=== PATIENT | male | born 1970 | race Two or more races ===

== ENCOUNTER 2024-04-18 21:45 | Inpatient (IN) | payer MEDICAID, OTHER ==
[~2024-04-18] VITALS: Ht 182.9 cm; Wt 104.7 kg
[2024-04-18 22:21] LABS: Basophils # (auto) 0.1 10 ^3/uL (0-0.2); Eosinophils # (auto) 0.2 10 ^3/uL (0-0.8); Eosinophils % (auto) 3.3 % (0.0-7.0); Hematocrit 34.4 % (41.0-53.0); Hemoglobin 11.9 g/dL (13.5-17.5); Lymphocytes # (auto) 2.1 10 ^3/uL (0.4-5.4); Lymphocytes % (auto) 28.7 % (10.0-50.0); Mean Corpuscular Hemoglobin 30.5 pg (28.0-32.0); Mean Corpuscular Hgb Conc. 34.6 g/dL (32.0-36.0); Mean Corpuscular Volume 88.1 fL (80.0-100.0); Monocytes # (auto) 0.7 10 ^3/uL (0-1.3); Monocytes % (auto) 9.3 % (0.0-12.0); Neutrophils # (auto) 4.2 10 ^3/uL (1.6-8.6); Neutrophils % (auto) 57.7 % (37.0-80.0); Red Cell Distribution Width 13.5 % (11.8-14.3); White Blood Cell 7.3 10^3/uL (4.4-10.8)
[2024-04-18 22:32] LABS: Chloride 105 mmol/L (98-107); Potassium 3.9 mmol/L (3.5-5.1); Sodium 138 mmol/L (136-145)
[2024-04-18 22:33] LABS: Anion Gap 6 (5-15); Calcium 9.6 mg/dL (8.7-10.4); Carbon Dioxide 27 mmol/L (20-30)
[2024-04-18 22:38] LABS: BUN/Creatinine Ratio 15.1 (10.0-20.0); Blood Urea Nitrogen 14 mg/dL (9-23); Glucose 182 mg/dL (74-106)
[2024-04-18 22:47] LABS: Urine Bacteria None Seen /hpf (None Seen)
[2024-04-18 22:55] LABS: Urine Blood Negative /uL (Negative); Urine Clarity Clear (Clear); Urine Color Light-Yellow (Yellow); Urine Protein, UAD Negative (Negative); Urine Specific Gravity 1.022 (1.001-1.035); Urine Urobilinogen Normal (Negative); Urine WBC <1 /hpf (0 - 3)
[2024-04-18] MEDS ORDERED: ONDANSETRON HCL 4 MG/2 ML VIAL IV PRN (23:45)
[2024-04-18] MEDS ORDERED: hydrALAZINE HCL 20 MG/ML VL IV PRN (23:45)
[2024-04-18] MEDS ORDERED: DEXTROSE (50%) 50ML SYRG IV PRN (23:45)
[2024-04-18] MEDS ORDERED: MECLIZINE HCL 25 MG TAB PO PRN (23:45)
[2024-04-18] MEDS ORDERED: DOCUSATE SOD 100 MG CAP PO PRN (23:45)
[2024-04-18] MEDS ORDERED: ACETAMINOPHEN 325 MG TAB PO PRN (23:45)
[2024-04-19] VITALS (10 sets, daily range): BP systolic 118–142; BP diastolic 76–89; PULSE 68–89; RESP 15–24; TEMP 97.6–98.2; O2SAT 97–99
[2024-04-19] MEDS ORDERED: NITROGLYCERIN 0.4 MG SL TAB SL PRN
[2024-04-19] MEDS ORDERED: MORPHINE SULFATE INJ 2 MG/ml SYRG IV PRN
[2024-04-19] MEDS: HYDROcodone-ACET 5/325MG TAB PO PRN (01:36)
[2024-04-19] MEDS ORDERED: SENN-195 PO (05:00)
[2024-04-19] MEDS ORDERED: ASPI-325 PO (05:00)
[2024-04-19] MEDS ORDERED: GLIP10TA9 PO ×2 (05:00→14:48)
[2024-04-19] MEDS ORDERED: METO1TAB9 PO (05:00)
[2024-04-19] MEDS ORDERED: ATOR20TA50 PO ×2 (05:00→14:48)
[2024-04-19] MEDS ORDERED: HYDR1TAB97 PO (05:00)
[2024-04-19] MEDS ORDERED: CYCL-611 PO (05:00)
[2024-04-19] MEDS ORDERED: GABA-1250 PO (05:00)
[2024-04-19] MEDS ORDERED: LISI-283 PO (05:26)
[2024-04-19] MEDS ORDERED: FEXO-42 PO ×2 (05:26→14:48)
[2024-04-19] MEDS: ACCU-CHEK COMFORT CURVE STRIP VI SCH (06:22)
[2024-04-19] MEDS: SODIUM CHLOR 0.9% PF (SALINE LOCK) 10ML VIAL/SYR IV SCH (06:22)
[2024-04-19] MEDS: InsuLIN REG 1unit/0.01ml Soln (100units/ml) SC SCH (06:22)
[2024-04-19 07:45] LABS: Basophils # (auto) 0.1 10 ^3/uL (0-0.2); Basophils % (auto) 0.9 % (0.0-2.0); Eosinophils # (auto) 0.3 10 ^3/uL (0-0.8); Eosinophils % (auto) 3.8 % (0.0-7.0); Hematocrit 36.3 % (41.0-53.0); Hemoglobin 12.7 g/dL (13.5-17.5); Lymphocytes # (auto) 1.5 10 ^3/uL (0.4-5.4); Lymphocytes % (auto) 21.3 % (10.0-50.0); Mean Corpuscular Hemoglobin 31.1 pg (28.0-32.0); Mean Corpuscular Volume 88.9 fL (80.0-100.0); Monocytes # (auto) 0.7 10 ^3/uL (0-1.3); Monocytes % (auto) 9.1 % (0.0-12.0); Neutrophils # (auto) 4.7 10 ^3/uL (1.6-8.6); Neutrophils % (auto) 64.9 % (37.0-80.0); Nucleated Red Blood Cells % 0.1 %; Red Blood Cells 4.08 10^6/uL (4.5-5.90); Red Cell Distribution Width 13.7 % (11.8-14.3); White Blood Cell 7.3 10^3/uL (4.4-10.8)
[2024-04-19 07:50] LABS: Alanine Aminotransferase 24 U/L (7-40); Albumin 3.9 g/dL (3.2-4.8); Alkaline Phosphatase 108 U/L (46-116); Anion Gap 5 (5-15); Aspartate Aminotransferase 15 U/L (13-40); BUN/Creatinine Ratio 12.8 (10.0-20.0); Blood Urea Nitrogen 11 mg/dL (9-23); Calcium 9.4 mg/dL (8.7-10.4); Carbon Dioxide 25 mmol/L (20-30); Chloride 109 mmol/L (98-107); Glucose 169 mg/dL (74-106); Potassium 4.1 mmol/L (3.5-5.1); Sodium 139 mmol/L (136-145)
[2024-04-19 07:51] LABS: Bilirubin, Total 0.2 mg/dL (0.2-1.0)
[2024-04-19] MEDS ORDERED: METOPROLOL TARTRATE 25 MG TAB PO SCH (10:00)
[2024-04-19] MEDS ORDERED: CYCLOBENZAPRINE HCL 10 MG TAB PO PRN (10:15)
[2024-04-19] MEDS: ASPirin 81 mg TAB PO SCH (10:34)
[2024-04-19 10:59] LABS: Triglycerides 302 mg/dL (< 150)
[2024-04-19 11:00] LABS: LDL Cholesterol 71 mg/dL (< 100)
[2024-04-19 11:01] LABS: Cholesterol 138 mg/dL (< 200); HDL Cholesterol 34 mg/dL (40-59)
[2024-04-19 13:22] LABS: Amphetamine Screen, Urine Neg (NEGATIVE); Benzodiazephine Screen, Urine Neg (NEGATIVE)
[2024-04-19 13:23] LABS: Barbiturate Scree,Urine Neg (NEGATIVE)
[2024-04-19 13:25] LABS: Cannabinoid Screen, Urine Pos (NEGATIVE); Cocaine Screen, Urine Neg (NEGATIVE); Opiate Scree,Urine Pos (NEGATIVE); Phencyclidine Screen, Urine Neg (NEGATIVE)
[2024-04-19] MEDS ORDERED: METO-289 PO (14:48)
[2024-04-19] MEDS ORDERED: ALOG1TAB2 PO (14:48)
[2024-04-19] MEDS ORDERED: LIDO2SOL18 MT (14:48)
[2024-04-19] MEDS ORDERED: METF-370 PO (14:48)
[2024-04-19] MEDS ORDERED: ASPI-543 PO (14:48)
[2024-04-19] MEDS ORDERED: LISI-285 PO (14:48)
[2024-04-19 18:00] LABS: Basophils # (auto) 0.1 10 ^3/uL (0-0.2); Basophils % (auto) 0.8 % (0.0-2.0); Eosinophils # (auto) 0.3 10 ^3/uL (0-0.8); Eosinophils % (auto) 3.8 % (0.0-7.0); Hemoglobin 12.1 g/dL (13.5-17.5); Lymphocytes # (auto) 1.6 10 ^3/uL (0.4-5.4); Lymphocytes % (auto) 23.5 % (10.0-50.0); Mean Corpuscular Hemoglobin 30.6 pg (28.0-32.0); Mean Corpuscular Hgb Conc. 34.8 g/dL (32.0-36.0); Mean Corpuscular Volume 87.9 fL (80.0-100.0); Monocytes # (auto) 0.6 10 ^3/uL (0-1.3); Monocytes % (auto) 9.1 % (0.0-12.0); Neutrophils # (auto) 4.2 10 ^3/uL (1.6-8.6); Neutrophils % (auto) 62.8 % (37.0-80.0); Red Blood Cells 3.98 10^6/uL (4.5-5.90); Red Cell Distribution Width 13.7 % (11.8-14.3); White Blood Cell 6.8 10^3/uL (4.4-10.8)
[2024-04-19 18:13] LABS: Chloride 109 mmol/L (98-107); Sodium 137 mmol/L (136-145)
[2024-04-19 18:14] LABS: Anion Gap 2 (5-15); Carbon Dioxide 26 mmol/L (20-30)
[2024-04-19 18:15] LABS: Calcium 9.6 mg/dL (8.7-10.4)
[2024-04-19 18:19] LABS: Glucose 122 mg/dL (74-106)
[2024-04-19 18:20] LABS: BUN/Creatinine Ratio 12.7 (10.0-20.0); Blood Urea Nitrogen 9 mg/dL (9-23)
[2024-04-19] MEDS ORDERED: InsuLIN REG 1unit/0.01ml Soln (100units/ml) SC SCH (22:00)
[2024-04-19] MEDS ORDERED: ATORVASTATIN 20 MG TAB PO SCH ×2 (22:00)
[2024-04-19] MEDS: ATORVASTATIN 20 MG TAB PO SCH (22:04)
[2024-04-20 05:00] VITALS: BP_SYST 139; BP_SYST 140; BP_SYST 145; BP_DIAS 92; BP_DIAS 93; BP_DIAS 96; PULSE 76; PULSE 81; RESP 20; RESP 24; TEMP 98.3; O2SAT 32; O2SAT 97
[2024-04-20 08:00] VITALS: PULSE 76; O2SAT 97
[2024-04-20] MEDS: GABAPENTIN 300 MG CAP PO SCH (09:56)
[2024-04-20 09:57] VITALS: BP 132/76; PULSE 71; RESP 17; TEMP 98.4; O2SAT 98
[2024-04-20] MEDS ORDERED: MECL-90 PO (13:25)
[2024-04-20] MEDS ORDERED: GABA-1250 PO (13:25)
[2024-04-20] MEDS ORDERED: METO-6 PO (13:25)
[2024-04-20 14:51] VITALS: BP 139/92; PULSE 67; RESP 17; TEMP 98.7; O2SAT 99
[2024-04-20 17:33] VITALS: BP 148/86; PULSE 76; RESP 17; TEMP 98.1; O2SAT 96
== END 2024-04-20 19:45 | disposition home or self-care (01) | DRG 111 ==
LOC: ER 21:45 → TELE 23:56 → TELE-EAST 23:56
PROVIDERS: ADMIT Internal Medicine; ATTEND Internal Medicine
DX: H81.10 Benign paroxysmal vertigo, unspecified ear (principal); D64.9 Anemia, unspecified; E11.65 Type 2 diabetes mellitus with hyperglycemia; E78.5 Hyperlipidemia, unspecified; E66.9 Obesity, unspecified; I10 Essential (primary) hypertension; K59.00 Constipation, unspecified; F12.90 Cannabis use, unspecified, uncomplicated; Z68.32 Body mass index [BMI] 32.0-32.9, adult; M54.59 Other low back pain
CPT/HCPCS: 36415; 70450; 71046; 80048; 80053; 80061; 80307; 81001; 82962; 83036; 83540; 83550; 83880; 84443; 84484; 85025; 93005; 97163; G0378

== ENCOUNTER 2024-07-09 02:18 | Emergency (ER) | payer MEDICAID ==
[~2024-07-09] VITALS: Ht 182.9 cm; Wt 100.0 kg
[~2024-07-09 02:18] MED LIST: ALOG1TAB2 PO; ASPI-543 PO; ATOR20TA50 PO; GABA-1250 PO; GLIP10TA9 PO; LIDO2SOL18 MT; MECL-90 PO; METF-370 PO; METO-6 PO
[2024-07-09 02:20] VITALS: TEMP 98.7
[2024-07-09 02:23] VITALS: BP 123/87; RESP 18; O2SAT 97
[2024-07-09] MEDS ORDERED: CYCL-837 PO (03:00)
[2024-07-09] MEDS: GABAPENTIN 300 MG CAP PO ONE (03:00)
[2024-07-09] MEDS ORDERED: IBUP-1456 PO (03:00)
[2024-07-09] MEDS: KETOROLAC TROMETH 60MG/2ML VIAL IM ONE (03:07)
[2024-07-09 03:24] VITALS: PULSE 75
== END 2024-07-09 03:18 | disposition home or self-care (01) ==
LOC: EDBD 02:18 → ER 02:18
DX: M54.41 Lumbago with sciatica, right side (principal); G89.29 Other chronic pain; Z79.82 Long term (current) use of aspirin; Z79.899 Other long term (current) drug therapy
CPT/HCPCS: 93005; 96372; 99283; J1885

== ENCOUNTER 2024-07-14 01:06 | Emergency (ER) | payer MEDICAID ==
[~2024-07-14] VITALS: Ht 182.9 cm; Wt 104.0 kg
[~2024-07-14 01:06] MED LIST changes: +CYCL-837 PO; +IBUP-1456 PO
[2024-07-14 01:15] VITALS: BP 160/93; PULSE 102; RESP 20; TEMP 98.3; O2SAT 97
[2024-07-14] MEDS ORDERED: AUG875T PO (02:11)
[2024-07-14] MEDS ORDERED: BACLOFEN 10 MG TAB PO ONE (02:15)
== END 2024-07-14 02:52 | disposition home or self-care (01) ==
LOC: EDBD 01:06 → ER 01:06 → EDUNIT# 01:47 → ER 02:52
DX: S91.351A Open bite, right foot, initial encounter (principal); Z79.899 Other long term (current) drug therapy; Z79.84 Long term (current) use of oral hypoglycemic drugs; W54.0XXA Bitten by dog, initial encounter; Y93.89 Activity, other specified; Y92.89 Other specified places as the place of occurrence of the external cause; Y99.8 Other external cause status

== ENCOUNTER 2024-07-31 20:43 | Emergency (ER) | payer MEDICAID ==
[~2024-07-31] VITALS: Ht 182.9 cm; Wt 91.0 kg
[~2024-07-31 20:43] MED LIST changes: +AUG875T PO
[2024-07-31] MEDS: LORazepam 2MG/ML-1ML VIAL IM ONE (21:11)
[2024-07-31] MEDS: diphenhdrAMINE HCL 50 MG/1 ML VL IM ONE (21:11)
[2024-07-31] MEDS: HALOPERIDOL LACTATE 5 MG/ML INJ VIAL IM ONE (21:12)
--- NOTE | 2024-07-31 21:13 | ED.PDOC ---
History of Present Illness HPI Comments 53 y/o M is BIBA for mental health issues, today. Per EMS, patient, initially, called for concerns on having a "heart attack/stroke." Patient is stated to not be endorsing any symptoms of chest pain, shortness of breath, weakness, vision or speech changes, or other associated symptoms. On scene, patient was found by EMS staff oriented to name and place but digressed into rambling and racing thoughts upon further inquiries. At time of assessment, patient has racing thoughts and noncooperative. Chief Complaint: Mental Health Time Seen by MD: 20:45 Primary Care Provider: ELOINA Reviewed Notes: Nurses Notes, Insurance Compliance Analyst Notes, Medications, Allergies Allergies: Coded Allergies: NO KNOWN ALLERGIES (Unverified , 04/18/24) Home Meds Active Scripts Amoxicillin & Pot Clavulanate (AUGMENTIN TABLET) 875 Mg Tb, 1 TAB PO BID for 5 Days, #10 TAB Prov:ESMER PETERSEN 07/14/24 Cyclobenzaprine Hcl (Cyclobenzaprine Hcl) 5 Mg Tab, 1 TAB PO QHSP, #14 TAB 0 Refills Prov:VIVIANE SANTOS 07/09/24 Ibuprofen (Ibuprofen) 800 Mg Tab, 1 TAB PO TID PRN, #30 TAB 0 Refills Prov:VIVIANE SANTOS 07/09/24 Meclizine Hcl (Meclizine Hcl) 25 Mg Tab, 25 MG PO Q8HPRN PRN for 10 Days, #30 TAB Prov:FRITZ MEJIA MD 04/20/24 Gabapentin (Gabapentin) 300 Mg Cap, 300 MG PO DAILY for 30 Days, #30 CAP Prov:FRITZ MEJIA MD 04/20/24 Metoprolol Succinate (Toprol Xl) 50 Mg Tab, 1 TAB PO DAILY for 30 Days, #30 TAB 5 Refills Prov:FRITZ MEJIA MD 04/20/24 Reported Medications Lidocaine Hcl (Lidocaine Viscous) 2 % Renetta, 15 ML MT 04/19/24 Alogliptin Benzoate (Alogliptin) 25 Mg Tab, 25 MG PO, TAB 04/19/24 Aspirin (Aspir-Low) 81 Mg Tab, 81 MG PO DAILY for 30 Days, MG 04/19/24 Metformin Hydrochloride (Metformin Hcl) 500 Mg Tab, 1000 MG PO IBID for 30 Days, MG 04/19/24 Atorvastatin Calcium (ATORVASTATIN CALCIUM) 20 Mg Tab, 1 TAB PO DAILY, #30 TAB 5 Refills 04/19/24 Glipizide (Glipizide) 10 Mg Tab, 10 MG PO for 30 Days, MG 04/19/24 Information Source: Patient, Emergency Med Personnel Mode of Arrival: EMS Severity: Moderate Timing: Hours Duration: Since onset Prehospital treatment: None Past Medical History PAST MEDICAL HISTORY: Denies Surgical History: Denies all surgeries Family History Family History: Unknown Social History Smoker: Non-Smoker Alcohol: Denies ETOH Use Drugs: Marijuana Lives In: Homeless Constitutional: denies: chills, diaphoresis, fatigue, fever, malaise, sweats, weakness, others EENTM: denies: blurred vision, double vision, ear bleeding, ear discharge, ear drainage, ear pain, ear ringing, eye pain, eye redness, hearing loss, mouth pain, mouth swelling, nasal discharge, nose bleeding, nose congestion, nose pain, photophobia, tearing, throat pain, throat swelling, voice changes, others Respiratory: denies: cough, hemoptysis, orthopnea, SOB at rest, shortness of breath, SOB with excertion, stridor, wheezing, others Cardiovascular: denies: chest pain, dizzy spells, diaphoresis, Dyspnea on exertion, edema, irregular heart beat, left arm pain, lightheadedness, palpita tions, PND, syncope, others Gastrointestinal: denies: abdomen distended, abdominal pain, blood streaked gabriella wels, constipated, diarrhea, dysphagia, difficulty swallowing, hematemesis, melena, nausea, poor appetite, poor fluid intake, rectal bleeding, rectal pain, vomiting, others Genitourinary: denies: burning, dysuria, flank pain, frequency, hematuria, incontinence, penile discharge, penile sore, pain, testicle pain, testicle swelling, urgency, others Neurological: denies: dizziness, fainting, headache, left sided numbness, left sided weakness, numbness, paresthesia, pre-existing deficit, right sided numbness, right sided weakness, seizure, speech problems, tingling, tremors, weakness, others Musculoskeletal: denies: back pain, gout, joint pain, joint swelling, muscle pain, muscle stiffness, neck pain, others Integumetry: denies: bruises, change in color, change in hair/nails, dryness, laceration, lesions, lumps, rash, wounds, others Allergic/Immunocompromised: denies: Difficulty Healing, Frequent Infections, Hives, Itching, others Hematologic/Lymphatic: denies: anemia, blood clots, easy bleeding, easy bruisin g, swollen glands, others Endocrine: denies: excessive hunger, excessive sweating, excessive thirst, excessive urination, flushing, intolerance to cold, intolerance to heat, unexplained weight gain, unexplained weight loss, others Psychiatric: denies: anxiety, bipolar disorder, depression, hopeless, panic disorder, schizophrenia, sleepless, suicidal, others All Other Systems: Reviewed and Negative (see HPI) Physical Exam General Appearance: Moderate Distress, Other (The patient was uncooperative and had to be restrained by the paramedics) HEENT: Normal ENT Inspection, Pharynx Normal, TMs Normal Neck: Full Range of Motion, Non-Tender, Normal, Normal Inspection Respiratory: Chest Non-Tender, Lungs Clear, No Accessory Muscle Use, No Respiratory Distress, Normal Breath Sounds Cardiovascular: No Edema, No JVD, No Murmur, No Gallop, Normal Peripheral Pulses, Regular Rate/Rhythm Breast Exam: Deferred Gastrointestinal: No Organomegaly, Non Tender, No Pulsatile Mass, Normal Bowel Sounds, Soft Genitalia: Deferred Pelvic: Deferred Rectal: Deferred Extremities: No calf tenderness, Normal capillary refill, Normal inspection, Normal range of motion, Non-tender, No pedal edema Musculoskeletal : Apperance: Normal Neurologic: Alert, auto finance sales rep II-XII nml as Tested, No Sensory Deficits, Other (The p atient's seems to be responding to internal stimuli) Cerebellar Function: Normal Reflexes: Normal Skin: Dry, Normal Color, Warm Lymphatic: No Adenopathy Was a procedure done? Was a procedure done?: No Differential Dx Considerations may include: schizophrenia, substance abuse, substance intoxication X-Ray, Labs, Meds, VS Vital Signs Date Time Temp Pulse Resp B/P (MAP) Pulse Ox O2 Delivery O2 Flow Rate FiO2 07/31/24 20:43 98.0 72 22 140/74 (96) 98 Lab Test 07/31/24 22:03 Range/Units White Blood Count 7.0 4.4-10.8 10^3/uL Red Blood Count 4.33 L 4.5-5.90 10^6/uL Hemoglobin 12.8 L 13.5-17.5 g/dL Hematocrit 36.9 L 41.0-53.0 % Mean Corpuscular Volume 85.3 80.0-100.0 fL Mean Corpuscular Hemoglobin 29.6 28.0-32.0 pg Mean Corpuscular Hemoglobin Concent 34.7 32.0-36.0 g/dL Red Cell Distribution Width 12.8 11.8-14.3 % Platelet Count 277 140-450 10^3/uL Mean Platelet Volume 8.9 6.9-10.8 fL Neutrophils (%) (Auto) 68.5 37.0-80.0 % Lymphocytes (%) (Auto) 22.8 10.0-50.0 % Monocytes (%) (Auto) 7.4 0.0-12.0 % Eosinophils (%) (Auto) 0.7 0.0-7.0 % Basophils (%) (Auto) 0.6 0.0-2.0 % Neutrophils # (Auto) 4.8 1.6-8.6 10 ^3/uL Lymphocytes # (Auto) 1.6 0.4-5.4 10 ^3/uL Monocytes # (Auto) 0.5 0-1.3 10 ^3/uL Eosinophils # (Auto) 0.1 0-0.8 10 ^3/uL Basophils # (Auto) 0 0-0.2 10 ^3/uL Nucleated Red Blood Cells 0.2 % Sodium Level 140 136-145 mmol/L Potassium Level 3.0 L 3.5-5.1 mmol/L Chloride Level 106 98-107 mmol/L Carbon Dioxide Level 25 20-31 mmol/L Anion Gap 9 5-15 Blood Urea Nitrogen 21 9-23 mg/dL Creatinine 0.79 0.700-1.30 mg/dL Glomerular Filtration Rate Calc 106 >90 mL/min BUN/Creatinine Ratio 26.6 H 10.0-20.0 Serum Glucose 95 74-106 mg/dL Calcium Level 10.2 8.7-10.4 mg/dL Plasma/Serum Blood Alcohol < 3.0 <10 mg/dL Current Medications Medications (Trade) Dose Ordered Sig/Marlon Route Start Time Stop Time Status Last Admin Haloperidol Lactate (Haldol) 10 mg ONCE ONCE IM 07/31/24 21:00 07/31/24 21:01 DC 07/31/24 21:12 Diphenhydramine HCl (Benadryl Injection) 50 mg ONCE ONCE IM 07/31/24 21:00 07/31/24 21:01 DC 07/31/24 21:11 Lorazepam (Ativan Inj) 2 mg ONCE ONCE IM 07/31/24 21:00 07/31/24 21:01 DC 07/31/24 21:11 The patient was given Haldol 10 mg IM The patient was given Benadryl 50 mg IM The patient was given Ativan 2 mg IM The patient was finally gone to sleep The CBC and chemistry panel are within normal limits At this time, the patient is sleeping The patient will be observed through the night and signed out to the [facility] emergency department's physician Time of 1ST Reevaluation: 21:15 Reevaluation 1ST: Unchanged Patient Education/Counseling: Prognosis, Other (The patient was acting bizarre) Family Education/Counseling: No Family Present Departure 1 Departure Time of Disposition: 23:04 Impression: Primary Impression: Acute psychosis Disposition: 30 STILL A PATIENT Condition: Fair Critical Care Note Critical Care Time?: No Stability Stability form required: No Heart Score Heart Score: Heart Score Response (Comments) Value History N/A 0 EKG N/A 0 Age N/A 0 Risk Factors N/A 0 Troponin N/A 0 Total 0 I personally scribed for MARIA GUADALUPE COX MD ([email or web address]) on 07/31/24 at 21:13. Electronically submitted by Desmond Jordan ([email or web address]). MARIA GUADALUPE COX MD Jul 31, 2024 21:13
[2024-07-31 22:19] LABS: Basophils # (auto) 0 10 ^3/uL (0-0.2); Basophils % (auto) 0.6 % (0.0-2.0); Eosinophils # (auto) 0.1 10 ^3/uL (0-0.8); Eosinophils % (auto) 0.7 % (0.0-7.0); Hematocrit 36.9 % (41.0-53.0); Hemoglobin 12.8 g/dL (13.5-17.5); Lymphocytes # (auto) 1.6 10 ^3/uL (0.4-5.4); Lymphocytes % (auto) 22.8 % (10.0-50.0); Mean Corpuscular Hemoglobin 29.6 pg (28.0-32.0); Mean Corpuscular Hgb Conc. 34.7 g/dL (32.0-36.0); Mean Corpuscular Volume 85.3 fL (80.0-100.0); Monocytes # (auto) 0.5 10 ^3/uL (0-1.3); Monocytes % (auto) 7.4 % (0.0-12.0); Neutrophils # (auto) 4.8 10 ^3/uL (1.6-8.6); Neutrophils % (auto) 68.5 % (37.0-80.0); Nucleated Red Blood Cells % 0.2 %; Platelet Count (auto) 277 10^3/uL (140-450); Red Blood Cells 4.33 10^6/uL (4.5-5.90); Red Cell Distribution Width 12.8 % (11.8-14.3)
[2024-07-31 22:28] LABS: Chloride 106 mmol/L (98-107); Sodium 140 mmol/L (136-145)
[2024-07-31 22:29] LABS: Anion Gap 9 (5-15); Calcium 10.2 mg/dL (8.7-10.4); Carbon Dioxide 25 mmol/L (20-31)
[2024-07-31 22:34] LABS: BUN/Creatinine Ratio 26.6 (10.0-20.0); Blood Urea Nitrogen 21 mg/dL (9-23); Glucose 95 mg/dL (74-106)
[2024-07-31 22:35] LABS: Blood Alcohol < 3.0 mg/dL (<10)
[2024-07-31 23:38] VITALS: TEMP 98.6
[2024-07-31 23:45] VITALS: PULSE 68; RESP 20; O2SAT 96
[2024-08-01 06:00] VITALS: BP 174/141
[2024-08-01 07:30] VITALS: PULSE 67; RESP 16; O2SAT 100
[2024-08-01] MEDS: HALOPERIDOL LACTATE 5 MG/ML INJ VIAL IM ONE (09:30)
[2024-08-01] MEDS: LORazepam 2MG/ML-1ML VIAL IM ONE (09:30)
[2024-08-01 10:04] LABS: Urine Bacteria None Seen /hpf (None Seen)
[2024-08-01 10:31] LABS: Urine Blood Negative /uL (Negative); Urine Clarity Clear (Clear); Urine Color Yellow (Yellow); Urine Mucus FEW (None Seen); Urine Protein, UAD TRACE (Negative); Urine Urobilinogen Normal (Negative); Urine WBC 1 /hpf (0 - 3)
--- NOTE | 2024-08-01 14:04 | ED.PDOC ---
Departure 1 Departure Time of Disposition: 14:03 (Patient is signed out to me pending psychiatric consultation. Patient awoke very agitated and combative and received sedative medication and is now sleeping comfortably.) Impression: Primary Impression: Acute psychosis Disposition: 30 STILL A PATIENT Condition: PERLITA Sifuentes MD Aug 01, 2024 14:04
[2024-08-01] MEDS: POTASSIUM CHL 20 Meq TABLET PO ONE (18:29)
[2024-08-02] MEDS ORDERED: LORazepam 2MG/ML-1ML VIAL ONE (05:03)
[2024-08-02] MEDS: LORazepam 2MG/ML-1ML VIAL IM ONE (05:16)
[2024-08-02] MEDS: LORazepam 0.5 MG TAB PO ONE (05:42)
== END 2024-08-02 05:59 | disposition left against medical advice (07) ==
LOC: EDBD 20:43 → ER 20:43
DX: F23 Brief psychotic disorder (principal); F15.90 Other stimulant use, unspecified, uncomplicated; Z59.00 Homelessness unspecified; Z79.82 Long term (current) use of aspirin; Z79.899 Other long term (current) drug therapy
CPT/HCPCS: 36415; 80048; 80320; 81001; 85025; 96372; 99285; J1200; J1630; J2060